=== PATIENT | female | born 1935 | race Caucasian/White ===

== ENCOUNTER 2016-06-27 09:44 | Emergency (ER) | payer MEDICARE, OTHER ==
--- NOTE | ~2016-06-27 | ER ---
PATIENT'S NAME: ERASMO EDMONDSON [facility] AGE: 81 Y [address] ROOM: [place] [id number] LOCATION: [facility] ADMIT DATE: 06/27/2016 ER/Outpatient Report DISCHARGE DATE: 06/27/2016 FAMILY PHYSICIAN: Pepe Rose MD ATTENDING PHYSICIAN: Danny Garcia Time Seen: 1015 hours. CHIEF COMPLAINT: Dizzy, nausea, lightheaded. HISTORY OF PRESENT ILLNESS: The patient is an 81-year-old female, said she was walking outside with a friend yesterday, said that she stumbled, fell forward causing a fracture to her upper incisor. The patient did not lose consciousness, was able to get up and continue walking. The patient does complain of some upper back pain today. Denies any significant neck pain. She did talk to Dr. Rose, advised that she come in for an evaluation. ALLERGIES: NO MEDICINAL ALLERGIES. CURRENT MEDICATIONS: See copied list which was reviewed. MEDICAL HISTORY: Does include hypertension, some congestive heart failure, history of left bundle-branch block. 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 History of sleep apnea. SURGERIES: Include knee, eye surgery, rectal hysterectomy, appendectomy, cholecystectomy. SOCIAL HISTORY: She is . Nonsmoker. No alcohol. REVIEW OF SYSTEMS: GENERAL: No fevers over the last 24 hours. HEAD/EENT: Denies any severe headache or neck pain. She is legally blind due to her macular degeneration. RESPIRATORY: No cough. No shortness of breath. CARDIOVASCULAR: No heart palpitations. No chest pain. GASTROINTESTINAL: No recent vomiting but has experienced some nausea. MUSCULOSKELETAL: Upper back pain. Denies any pain to her lower or upper extremities. PATIENT'S NAME: ERASMO EDMONDSON [facility] AGE: 81 Y [address] ROOM: [place], [place] [address] LOCATION: [facility] ADMIT DATE: 06/27/2016 ER/Outpatient Report DISCHARGE DATE: 06/27/2016 FAMILY PHYSICIAN: Pepe Rose MD ATTENDING PHYSICIAN: Danny Garcia NEUROLOGIC: No numbness or tingling to her extremities. PHYSICAL EXAMINATION: VITAL SIGNS: On exam, her temperature is 97.9, her respiratory rate 18, pulse 60, O2 saturations 94%, blood pressure 132/76. GENERAL APPEARANCE: An 81-year-old female, she is oriented, alert. HEENT: Head, no tenderness to palpation. Eyes, legally blind. Pupils grossly equal. Sclerae are clear. Nose, no deformity. Septum midline. Mouth, right upper incisor is completely broken off. She had no jaw pain to palpation. NECK: Appeared supple. No central tenderness. LUNGS: Clear at the base. HEART: Tones distant, appeared regular. ABDOMEN: Soft and nontender. EXTREMITIES: No pedal edema. No significant joint swelling or tenderness. LABORATORY DATA AND X-RAYS: CT imaging: Head, C-spine, upper thoracic was negative for any acute injuries. Her EKG showed an abnormal left axis deviation and left bundle- branch block. Cardiac markers were normal. Her CMS; potassium slightly low at 3.5, glucose was high at 103. Chest x-ray appeared grossly normal. CBC: White count 5.9, hemoglobin 15.4. ASSESSMENT: 1. Ground level fall. 2. Fractured right upper incisor. 3. Left bundle-branch block, previous history as stated by Dr. Rose. 4. Congestive heart failure. 5. Hypertension. 6. Bilateral macular degeneration. 7. Sleep apnea. PLAN: I talked to Dr. Rose. He thought that she would be able to go home. Recommend that she follow up with a dentist concerning her fractured tooth. Otherwise, limit activity today. Tylenol for pain. The patient verbalized understanding of her take-home instructions. MYRA MACEDO FOR MD KURTIS CROUCH/abhi PATIENT'S NAME: ERASMO EDMONDSON [facility] AGE: 81 Y [address] ROOM: [place], [place] [address] LOCATION: [facility] ADMIT DATE: 06/27/2016 ER/Outpatient Report DISCHARGE DATE: 06/27/2016 FAMILY PHYSICIAN: Pepe Rose MD ATTENDING PHYSICIAN: Danny Garcia /[id number] d: 06/27/16 2217 t: 07/20/16 0602, OUTPATIENT REPORT
[2016-06-27 10:50] LABS: BASOPHIL % 0.5 %; EOSINOPHIL # 0.1 K/uL (0.0-0.5); EOSINOPHIL % 1.2 %; HEMATOCRIT 47.4 % (30.0-46.0); HEMOGLOBIN 15.4 g/dL (10.0-15.0); IMMATURE GRANULOCYTE % 0.3 %; LYMPHOCYTE # 1.6 K/uL (0.8-4.0); LYMPHOCYTE % 27.2 %; MCH 28.7 pg (27.0-34.0); MCHC 32.5 gm/dL (32.0-36.5); MCV 88.3 fl (83.0-98.0); MONOCYTE # 0.6 K/uL (0.0-1.0); MONOCYTE % 9.7 %; MPV 9.9 fl (9.4-12.4); NEUTROPHIL # (ANC) 3.6 K/uL (1.8-7.8); NEUTROPHIL % 61.1 %; NRBC % 0 /100WBC (0-0.00); PLATELET COUNT 271 K/uL (150-450); RBC 5.37 M/uL (3.00-5.00); RDW-CV 14.3 % (11.9-14.6); WBC 5.9 K/uL (4.0-11.0)
[2016-06-27 11:07] LABS: ALBUMIN 3.7 gm/dL (3.5-5.0); ANION GAP 15.5 (10.0-19.0); CALCIUM 8.8 mg/dL (8.5-10.5); POTASSIUM 3.5 mMol/L (3.7-5.1); TOTAL BILIRUBIN 0.4 mg/dL (0.0-1.5); TOTAL PROTEIN 7.6 g/dL (6.0-8.4)
[2016-06-27 11:43] LABS: CPK 93 IU/L (21-215)
[2016-06-27 13:24] LABS: CPK 90 IU/L (21-215)
== END 2016-06-27 13:15 | disposition disaster alternative care site (69) ==
LOC: GACC 09:44
PROVIDERS: Physician Assistant Medical
DX: S02.5XXA Fracture of tooth (traumatic), initial encounter for closed fracture (principal); I44.7 Left bundle-branch block, unspecified; I11.0 Hypertensive heart disease with heart failure; I50.9 Heart failure, unspecified; Z90.49 Acquired absence of other specified parts of digestive tract; Z90.710 Acquired absence of both cervix and uterus; W01.0XXA Fall on same level from slipping, tripping and stumbling without subsequent striking against object, initial encounter